=== PATIENT | male | born 1970 | race Caucasian/White ===

== ENCOUNTER 2022-06-28 00:45 | Inpatient (IN) | payer OTHER, MEDICAID, SELFPAY ==
[2022-06-28] VITALS (53 sets, daily range): BP systolic 144–169; BP diastolic 70–90; PULSE 79–115; RESP 12–27; TEMP 37.3–38; O2SAT 93–100; BMI 25.0
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
[2022-06-28] MEDS: MORPHINE 4 MG/ML INJ IM (01:59)
[2022-06-28 02:11] LABS: Add Manual Diff / Slide Review NO; Basophils Absolute Auto 100 /uL (0-100); Basophils Percent Auto 0.4 % (0-2); Eosinophils Absolute Auto 0 /uL (0-450); Hematocrit 41.1 % (41-53); Hemoglobin 13.8 g/dL (13.5-17.5); Lymphocytes Absolute Auto 1400 /uL (1100-4500); Lymphocytes Percent Auto 5.1 % (25-40); Mean Corpuscular HGB Conc 33.5 % (30-36); Mean Corpuscular Hemoglobin 29.5 PG (26-34); Mean Corpuscular Volume 88.1 fL (80-100); Monocytes Absolute Auto 2000 /uL (0-900); Monocytes Percent Auto 7.1 % (3-14); Neutrophils Absolute Auto 24100 /uL (1500-7000); Neutrophils Percent Auto 87.4 % (50-75); Platelet Count 281 X10^3/uL (150-400); Red Blood Cell Count 4.67 X10^6/uL (4.5-5.9); Red Cell Distribution Width 13.6 % (11.6-14.8); White Blood Cell Count 27.5 X10^3/uL (4.5-11.0)
[2022-06-28 02:21] LABS: Lactate (Lactic Acid) 2.1 mmol/L (0.7-2.1)
[2022-06-28] MEDS: SODIUM CHLORIDE 0.9% 1,000 ML 125 ML IV ×2 (02:40→21:27)
[2022-06-28] MEDS: cefTRIAXone 1,000 MG in SODIUM CHLORIDE 0.9% 100 ML 200 MG IV (02:40)
[2022-06-28 02:53] LABS: BUN Creatinine Ratio 24.6 (6-22); Blood Urea Nitrogen 15 mg/dL (9-20); Carbon Dioxide 31 mmol/L (22-32); Chloride 97 mmol/L (98-107); Estimated Glomerular Filt Rate > 60 mL/min (>60); Glucose 158 mg/dL (70-100); HEMOLYSIS < 15 (0-50); Lipase 26 U/L (23-300); Potassium 4.3 mmol/L (3.4-5.1); Sodium 136 mmol/L (137-145)
[2022-06-28] MEDS: HYDROMORPHONE 1 MG INJ IV ×2 (02:59→23:38)
[2022-06-28 03:10] LABS: Procalcitonin 0.34 ng/mL (<0.5)
[2022-06-28] MEDS: VANCOMYCIN 1,000 MG/200 ML PIGGYBACK 200 MG IV (03:18)
--- NOTE | 2022-06-28 03:39 | DI.RAD.S_ITS ---
PROCEDURE: XR HAND LT MIN 3V INDICATIONS: Fall reinjury Lt hand w/leukocytosis TECHNIQUE: 3 views of the hand(s) acquired. COMPARISON: None. FINDINGS: Bones: No fractures or dislocations. Carpal bones are normally aligned. No suspicious bony lesions. Soft tissues: No suspicious soft tissue calcifications. IMPRESSION: No acute osseous abnormality. Agree with preliminary interpretation. Dictated by: Toni Gamez M.D. on 06/28/2022 at 7:35 Approved by: Toni Gamez M.D. on 06/28/2022 at 7:37
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
[2022-06-28 04:04] LABS: Reflexed Lactate in 2 Hours Y
[2022-06-28] MEDS: ONDANSETRON 4 MG/2 ML INJ IV (04:05)
[2022-06-28] MEDS: MORPHINE 4 MG/ML INJ IV (04:06)
[2022-06-28] MEDS: SODIUM CHLORIDE 0.9% 1,000 ML 100 ML IV (05:04)
--- NOTE | 2022-06-28 05:24 | PC.NURSE ---
Pt's R upper arm IV has infiltrated with normal saline. Fluids have been stopped and IV removed. Affected arm has been wrapped in compression bandages and elevated. Pt denies pain to the area.
--- NOTE | 2022-06-28 05:40 | PC.NURSE ---
Pt has no peripheral access for IV starts of lab draws. founder aware and action has been taken facilitate DI nurse to come and obtain IV access.
[2022-06-28 06:20] LABS: Appearance Urine UA CLEAR; Bilirubin Urine UA 1+ (NEGATIVE); Glucose Urine UA NEGATIVE (Negative); Ketones Urine UA TRACE (NEGATIVE); Leukocyte Esterase Urine UA NEGATIVE (NEGATIVE); Nitrite Urine UA NEGATIVE (Negative); Occult Blood Urine UA NEGATIVE (Negative); Protein Urine UA TRACE (Negative); Specific Gravity Urine UA 1.015 (1.000-1.035)
[2022-06-28 06:24] LABS: Ur Creatinine Normal (Normal); Ur Specific Gravity Normal (Normal); Urine pH Normal (Normal)
[2022-06-28 06:25] LABS: UR Morphine/Opiate cutoff 300 Positive (Negative); Urine Amphetamines Positive (Negative); Urine Barbiturates Negative (Negative); Urine Benzodiazepines Negative (Negative); Urine Cocaine Negative (Negative); Urine MDMA Negative (Negative); Urine Methadone Positive (Negative); Urine Methamphetamines Positive (Negative); Urine Oxycodone Positive (Negative); Urine Phencyclidine Negative (Negative); Urine Tetrahydrocannabinol Negative (Negative); Urine Tricyclic Antidepressant Negative (Negative)
[2022-06-28 06:26] LABS: Color Urine UA Dark Yellow
[2022-06-28 06:28] LABS: Ictotest Urine Positive (Negative); RBC Urine 1-5/HPF (0-5/HPF); WBC Urine 1-5/HPF (0-5/HPF)
[2022-06-28 06:29] LABS: Bacteria Urine Occasional (0-1); Squamous Epithelial Cell Urine 0-1 /HPF (0-5/HPF)
[2022-06-28 06:30] LABS: Culture Indicated Urine Cult Not Indicated
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
[2022-06-28] MEDS: METHADONE 5 MG TABLET PO (06:50)
--- NOTE | 2022-06-28 09:44 | DI.MRI.S_ITS ---
PROCEDURE: MR FOREARM LT WO CON INDICATIONS: abscess, infection TECHNIQUE: Noncontrast coronal and sagittal T1 spin echo and STIR; axial T1 spin echo and T2 fast spin echo with fat saturation through the left forearm. COMPARISON: None. FINDINGS: Image quality: Diagnostic. Patient was in too much pain to tolerate further imaging. Coronal T1, coronal STIR, sagittal STIR and sagittal T1 sequences through the forearm were obtained. Bones: There is no marrow edema. No fracture or dislocation. No cortical erosion or periosteal reaction. Soft tissues: The scanned muscles demonstrate normal overall bulk and internal signal. There is diffuse subcutaneous soft tissue edema predominantly along radial and dorsal aspect of mid to distal forearm. No gross drainable fluid collection is identified. IMPRESSION: 1. Slightly limited study due to poor patient tolerance. Only 4 sequences were obtained. 2. No marrow edema. No forearm fracture or dislocation. No evidence of osteomyelitis. 3. Suggestion of cellulitis involving mid to distal forearm. No gross drainable abscess collection. No underlying forearm muscle signal abnormalities. Dictated by: Jeff Mcfadden M.D. on 06/28/2022 at 15:36 Approved by: Jeff Mcfadden M.D. on 06/28/2022 at 15:41
[2022-06-28] MEDS: ENOXAPARIN 40 MG/0.4 ML SYRINGE SUBCUT (10:02)
[2022-06-28] MEDS: HYDROMORPHONE 2 MG INJ IV ×5 (10:03→21:27)
--- NOTE | 2022-06-28 10:15 | PC.NURSE ---
Midline placed RUE approx 0930 by STEVE RN. Pt given Dilaudid 2mg post midline placement for 9/10 pain. Pt reports 4/10 pain at this time. Will continue to monitor.
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
[2022-06-28 11:13] LABS: Add Manual Diff / Slide Review NO; Basophils Absolute Auto 100 /uL (0-100); Basophils Percent Auto 0.4 % (0-2); Eosinophils Absolute Auto 0 /uL (0-450); Hematocrit 34.5 % (41-53); Hemoglobin 11.7 g/dL (13.5-17.5); Lymphocytes Absolute Auto 1400 /uL (1100-4500); Lymphocytes Percent Auto 6.1 % (25-40); Mean Corpuscular Hemoglobin 29.8 PG (26-34); Mean Corpuscular Volume 87.5 fL (80-100); Monocytes Absolute Auto 1900 /uL (0-900); Neutrophils Absolute Auto 20100 /uL (1500-7000); Neutrophils Percent Auto 85.5 % (50-75); Platelet Count 275 X10^3/uL (150-400); Red Blood Cell Count 3.94 X10^6/uL (4.5-5.9); Red Cell Distribution Width 13.8 % (11.6-14.8); White Blood Cell Count 23.6 X10^3/uL (4.5-11.0)
[2022-06-28 11:26] LABS: Hemoglobin A1C% w Est Avg Glu 5.8 % (4.0-6.0)
--- NOTE | 2022-06-28 11:55 | PC.NURSE ---
Unable to pull blood from midline, spoke with STEVE RN, states vessel is very small and is likely collapsing with pressure. Line flushes but does not draw. STEVE RN will stop by to see pt late morning to reassess. Lab advised RN that they are unable to draw pt due to pt being a difficult stick.
[2022-06-28] MEDS: VANCOMYCIN 1,250 MG/250 ML PIGGYBACK 250 MG IV ×2 (12:06→19:20)
--- NOTE | 2022-06-28 12:52 | DI.RAD.S_ITS ---
PROCEDURE: XR CHEST FOR PICC 1V INDICATIONS: PICC placement COMPARISON: None. FINDINGS: PICC was placed by the intravenous therapy team from the right side. Fluoroscopic spot film demonstrates the tip of PICC projecting to the area of cavoatrial junction. IMPRESSION: Tip of PICC projects to the area of cavoatrial junction. Dictated by: Rosey Mckenna M.D. on 06/28/2022 at 14:03 Approved by: Rosey Mckenna M.D. on 06/28/2022 at 14:03
[2022-06-28 13:29] LABS: Lactate 2HR (Lactic Acid Rflx) 1.3 mmol/L (0.7-2.1)
[2022-06-28 13:33] LABS: BUN Creatinine Ratio 21.8 (6-22); Blood Urea Nitrogen 12 mg/dL (9-20); Calcium 8.2 mg/dL (8.4-10.2); Carbon Dioxide 30 mmol/L (22-32); Chloride 95 mmol/L (98-107); Estimated Glomerular Filt Rate > 60 mL/min (>60); Glucose 149 mg/dL (70-100); HEMOLYSIS < 15 (0-50); Magnesium 1.7 mg/dL (1.6-2.3); Potassium 4.1 mmol/L (3.4-5.1); Sodium 132 mmol/L (137-145)
--- NOTE | 2022-06-28 13:37 | PC.NURSE ---
PICC placed by STEVE MCKEON at approx 1245. Blood send to lab.
[2022-06-28 13:39] LABS: NT-proBNP (BNP-Adult 18+) 1200 pg/mL (<125)
[2022-06-28 13:52] LABS: C-Reactive Protein Quant 18.4 mg/dL (<1.0)
--- NOTE | 2022-06-28 14:17 | OT.IPNOTE ---
OT eval orders received, awaiting MRI results and check with doctor for appropriateness of OT eval, therefore hold OT eval.
[2022-06-28 14:20] LABS: INR 1.2 (0.9-1.3)
--- NOTE | 2022-06-28 14:46 | DI.CT.S_ITS ---
PROCEDURE: CT UE LT W CON INDICATIONS: r/o abscess. please eval hand to elbow TECHNIQUE: After the administration of intravenous contrast, 3 mm axial sections acquired of the left forearm, with coronal and sagittal reformats. COMPARISON: None. FINDINGS: Image quality: Excellent. Bones: There is normal forearm alignment. No fracture or dislocation. No suspicious intraosseous lesion. No cortical erosion or periosteal reaction. Soft tissues: Soft tissue edema and subcutaneous fat stranding involving dorsal and radial aspect of forearm is seen extending to left wrist. No discrete drainable fluid collection is seen. No subcutaneous emphysema or gross ulceration. Underlying forearm muscles show no abnormal density or area of abnormal enhancement. IMPRESSION: 1. Suggestion of [id number] cellulitis throughout left forearm. No discrete drainable abscess collection. No underlying muscle involvement. 2. No forearm fracture or dislocation. No CT evidence of osteomyelitis. No suspicious bony lesions. Dictated by: Jeff Mcfadden M.D. on 06/28/2022 at 15:42 Approved by: Jeff Mcfadden M.D. on 06/28/2022 at 15:44
[2022-06-28 15:10] LABS: MRSA (Nasal) PCR Not Detected (Not Detect)
--- NOTE | 2022-06-28 15:10 | PC.NURSE ---
Per day shift chart review, IV fluids were stopped approx 0500 due to lack of IV access. The cage shift manager US-guided IV infiltrated around 0500, per cage shift manager RN, and required day shift DI nurse two separate attempts between [id number] for midline and PICC access. Fluids restarted once PICC was in place. See DI RN notes.
[2022-06-28] MEDS: SENNOSIDES 8.6 MG TABLET 17.2 MG PO (21:27)
[2022-06-29] VITALS (35 sets, daily range): BP systolic 119–185; BP diastolic 63–80; PULSE 63–91; RESP 14–30; TEMP 36.3–39.2; O2SAT 89–98; BMI 25.6
[2022-06-29] MEDS: cefTRIAXone 1,000 MG in SODIUM CHLORIDE 0.9% 100 ML 200 MG IV (00:59)
[2022-06-29 01:37] LABS: Acinetobacter baumannii Not Detected (Not Detect); Candida albicans Not Detected (Not Detect); Candida glabrata Not Detected (Not Detect); Candida krusei Not Detected (Not Detect); Candida parapsilosis Not Detected (Not Detect); Candida tropicalis Not Detected (Not Detect); E. coli Not Detected (Not Detect); Enterobacter cloacae complex Not Detected (Not Detect); Enterobacteriaceae species Not Detected (Not Detect); Enterococcus species Not Detected (Not Detect); Haemophilus influenzae Not Detected (Not Detect); Listeria monocytogenes Not Detected (Not Detect); Neisseria meningitidis Not Detected (Not Detect); Proteus species Not Detected (Not Detect); Pseudomonas aeruginosa Not Detected (Not Detect); Serratia marcescens Not Detected (Not Detect); Staphylococcus species Not Detected (Not Detect); Streptococcus agalactiae (Gr B Not Detected (Not Detect); Streptococcus pneumonia Not Detected (Not Detect); Streptococcus pyogenes (Gr A) Detected (Not Detect); Streptococcus species Detected (Not Detect)
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
[2022-06-29] MEDS: HYDROMORPHONE 2 MG INJ IV ×3 (02:02→23:29)
[2022-06-29] MEDS: CLINDAMYCIN 900 MG/50 ML PIGGYBACK 50 MG IV ×3 (02:27→17:56)
[2022-06-29 03:04] LABS: Vancomycin Trough 8.3 ug/mL (10-20)
[2022-06-29] MEDS: ACETAMINOPHEN 325 MG TABLET 975 MG PO ×2 (03:09→12:33)
[2022-06-29] MEDS: MEROPENEM 1 GM in SODIUM CHLORIDE 0.9% 100 ML IV ×3 (03:22→17:56)
[2022-06-29 03:30] LABS: Add Manual Diff / Slide Review NO; Basophils Absolute Auto 0 /uL (0-100); Basophils Percent Auto 0.2 % (0-2); Eosinophils Absolute Auto 0 /uL (0-450); Hematocrit 32.5 % (41-53); Lymphocytes Absolute Auto 1500 /uL (1100-4500); Lymphocytes Percent Auto 8.4 % (25-40); Mean Corpuscular HGB Conc 33.8 % (30-36); Mean Corpuscular Hemoglobin 29.7 PG (26-34); Mean Corpuscular Volume 87.9 fL (80-100); Monocytes Absolute Auto 1400 /uL (0-900); Neutrophils Absolute Auto 14400 /uL (1500-7000); Neutrophils Percent Auto 83.4 % (50-75); Platelet Count 286 X10^3/uL (150-400); Red Cell Distribution Width 13.5 % (11.6-14.8); White Blood Cell Count 17.3 X10^3/uL (4.5-11.0)
[2022-06-29] MEDS: VANCOMYCIN 1,250 MG/250 ML PIGGYBACK 250 MG IV ×3 (04:06→18:45)
[2022-06-29] MEDS: SODIUM CHLORIDE 0.9% 1,000 ML 125 ML IV ×3 (06:16→23:15)
[2022-06-29] MEDS: HYDROMORPHONE 1 MG INJ IV ×5 (06:52→16:37)
--- NOTE | 2022-06-29 07:29 | DI.ECHO.S_ITS ---
[facility] +---------+ [facility] +---------+ : : [address] : : : : [id number] : : : : Phone: [phone]+ Echocardiogram Report + + :Name: ALTAF DERAS Study Date: 06/29/2022 Height: 65 in : :[facility] ReadingLocation: Weight: 160 lb : : Gender: Male BSA: 1.8 m2 : :: 1970 Age: 52 yrs BP: 124/68 mmHg: :Reason For Study: GROUP A STREP BACTEREMIA : :Ordering Physician: CAREY, : :YOLANDA GARNER Performed By: Zoe Agustin : :Referring: YOLANDA PATINO : + + Interpretation Summary The left ventricle is normal in size and wall thickness. The ejection fraction is estimated to be 55-60%. The right ventricle is normal in size and function. There is mild tricuspid regurgitation. The right ventricular systolic pressure is estimated to be at least 41 mmHg based on an estimated right atrial pressure of 3 mm Hg. No obvious valvular vegetation seen. If clinical suspicion for endocarditis is high, consider ETHEL. Procedure: A two-dimensional transthoracic echocardiogram with color flow and Doppler was performed. The study quality was technically good. There is no prior echocardiogram noted for this patient. The patient was in sinus rhythm with heart rates between 76-89 bpm during the exam. Left Ventricle: The left ventricle is normal in size and wall thickness. There is no thrombus. The ejection fraction is estimated to be 55-60%. Septal motion is consistent with conduction abnormality. Diastolic parameters suggest probable normal left ventricular diastolic function and normal filling pressures. Right Ventricle: The right ventricle is normal in size and function. Atria: The left atrial size is normal. Right atrial size is normal. A prominent eustachian valve is noted. There is no Doppler evidence for an interatrial shunt. Mitral Valve: The mitral valve is normal in structure and function. There is systolic anterior motion of the chordal apparatus. There is trace mitral regurgitation. Aortic Valve: The aortic valve is trileaflet. The aortic valve opens well. There is no aortic valve stenosis. No aortic regurgitation is present. Tricuspid Valve: The tricuspid valve is normal. There is mild tricuspid regurgitation. The right ventricular systolic pressure is estimated to be at least 41 mmHg based on an estimated right atrial pressure of 3 mm Hg. Pulmonic Valve: The pulmonic valve leaflets are thin and pliable; valve motion is normal. There is trace pulmonic regurgitation. Great Vessels: The aortic root is normal size. The dimensions of the ascending aorta are normal. The IVC is of normal diameter and collapses greater than 50% with a sniff. This suggests a low right atrial pressure of 3 mm Hg. Pericardium/ Pleura There is no pericardial effusion. There is no pleural effusion. MMode/2D Measurements & Calculations LVIDd: 4.9 cm LVOT diam: 2.1 cm LVIDs: 2.9 cm Ao root diam: 3.0 cm FS: 40.3 % asc Aorta Diam: 3.1 cm IVSd: 0.72 cm Ao Arch Diam (Prox Trans): 2.9 cm LVPWd: 0.66 cm LV morales. diameter/BSA (cm/m^2): 2.7 LV sys. diameter/BSA (cm/m^2): 1.6 LA A2 area: 17.1 cm2 RA long axis: 4.2 cm LA A4 area: 16.6 cm2 RA area: 11.9 cm2 LA length (vol): 4.5 cm RA vol: 28.6 ml LA vol: 53.4 ml RA : 15.9 ml/m2 LA vol index: 29.7 ml/m2 IVC diam: 1.8 cm RVD1 (basal): 3.6 cm RVD2 (mid): 3.1 cm TAPSE: 2.0 cm Doppler Measurements & Calculations Ao V2 max: 110.5 cm/sec LVOT Max Ray: 95.3 cm/sec Ao V2 mean: 79.5 cm/sec LV V1 max P.6 mmHg Ao max P.9 mmHg LV V1 VTI: 19.1 cm Ao mean P.7 mmHg MIKE(I,D): 2.8 cm2 Ao V2 VTI: 23.3 cm MIKE(V,D): 2.9 cm2 sev ratio: 0.82 MIKE indexed to BSA (cm^2/m^2): 1.5 MV E max ray: 76.6 cm/sec TR max ray: 309.0 cm/sec MV A max ray: 56.9 cm/sec TR max P.2 mmHg MV E/A: 1.3 PA V2 max: 93.0 cm/sec Med Peak E' Ray: 9.6 cm/sec PA V2 mean: 67.0 cm/sec E/E' med: 7.9 PA mean P.9 mmHg Lat Peak E' Ray: 12.1 cm/sec PA pr(Accel): 48.2 mmHg E/E' lat: 6.4 E/e' average: 7.1 MV dec time: 0.22 sec SV(OT): 64.3 ml Reading Physician:04:26 PM
[2022-06-29] MEDS: ENOXAPARIN 40 MG/0.4 ML SYRINGE SUBCUT (09:18)
--- NOTE | 2022-06-29 10:29 | OT.IPNOTE ---
Per hospitalist not appropriate for therapy evals at this time and okay to discharge OT eval orders.
--- NOTE | 2022-06-29 15:20 | PC.NURSE ---
Pt arrived on stretcher from ED at 1410, A&Ox4, VSS on RA, c/o 8/10 pain to L hand. Unable to make fist or move fingers, swelling/redness present, c/o numbness to hand, CMS otherwise intact. Pt oriented to room and call light, bed alarm on.
[2022-06-29 15:21] LABS: COVID19 -Nasal RAPID POSITIVE (Negative)
--- NOTE | 2022-06-29 16:55 | PT-IP ANOTE ---
Per hospitalist not appropriate for therapy evals at this time and okay to discharge PT eval orders.
[2022-06-29] MEDS: SENNOSIDES 8.6 MG TABLET 17.2 MG PO (21:01)
[2022-06-30] VITALS (7 sets, daily range): BP systolic 144–164; BP diastolic 74–89; PULSE 74–94; RESP 17–20; TEMP 36.6–37.7; O2SAT 90–97
[2022-06-30] MEDS: VANCOMYCIN 1,250 MG/250 ML PIGGYBACK 250 MG IV ×4 (00:18→19:00)
[2022-06-30] MEDS: CLINDAMYCIN 900 MG/50 ML PIGGYBACK 50 MG IV ×3 (01:43→18:26)
[2022-06-30] MEDS: HYDROMORPHONE 2 MG INJ IV ×8 (02:02→21:33)
[2022-06-30] MEDS: MEROPENEM 1 GM in SODIUM CHLORIDE 0.9% 100 ML IV ×3 (02:05→18:26)
[2022-06-30] MEDS: SODIUM CHLORIDE 0.9% 1,000 ML 125 ML IV ×2 (07:02→16:27)
--- NOTE | 2022-06-30 07:08 | DI.US.S_ITS ---
PROCEDURE: US EXTREMITY NONVASC UPPER LT INDICATIONS: LEFT HAND AND WRIST CELLULITIS TECHNIQUE: Real-time scanning was performed of the left hand, with image documentation. COMPARISON: None. FINDINGS: Focused ultrasound examination over dorsal aspect of left hand shows marked soft tissue edema and swelling. No discrete soft tissue mass or drainable fluid collection. IMPRESSION: Dorsal soft tissue swelling and edema in left hand suggestive of extensive cellulitis. No drainable abscess collection or soft tissue mass. Dictated by: Jeff Mcfadden M.D. on 06/30/2022 at 8:37 Approved by: Jeff Mcfadden M.D. on 06/30/2022 at 8:48
[2022-06-30 07:34] LABS: Hemoglobin 10.4 g/dL (13.5-17.5); Mean Corpuscular HGB Conc 33.7 % (30-36); Mean Corpuscular Hemoglobin 29.7 PG (26-34); Mean Corpuscular Volume 88.2 fL (80-100); Platelet Count 309 X10^3/uL (150-400); Red Blood Cell Count 3.51 X10^6/uL (4.5-5.9); Red Cell Distribution Width 13.4 % (11.6-14.8); White Blood Cell Count 14.6 X10^3/uL (4.5-11.0)
[2022-06-30 07:37] LABS: Add Manual Diff / Slide Review YES
[2022-06-30 07:38] LABS: BUN Creatinine Ratio 16.7 (6-22); Blood Urea Nitrogen 9 mg/dL (9-20); Calcium 7.2 mg/dL (8.4-10.2); Carbon Dioxide 30 mmol/L (22-32); Chloride 99 mmol/L (98-107); Estimated Glomerular Filt Rate > 60 mL/min (>60); Glucose 102 mg/dL (70-100); HEMOLYSIS < 15 (0-50); Potassium 3.3 mmol/L (3.4-5.1); Sodium 134 mmol/L (137-145)
[2022-06-30] MEDS: ENOXAPARIN 40 MG/0.4 ML SYRINGE SUBCUT (08:08)
[2022-06-30 09:44] LABS: Neutrophils Absolute Manual 11096 /uL (3000-5900); Total Cells Counted 100
[2022-06-30 09:50] LABS: RBC Morphology Normal Morphology
[2022-06-30] MEDS: POTASSIUM CHLORIDE 20 MEQ TAB 40 MEQ PO (12:28)
--- NOTE | 2022-06-30 15:18 | CM.DANOTE ---
DCP Assessment: patient is 52 yr old male who was admitted for cellulites of the hand. Has Hx of drug abuse. CM met with patient at the bedside briefly- patient was A&O however very sleepy and not really participating with CM assessment. Patient states he is Independent with his ADLs and Drives at his baseline. Patient state he lives with GF in [place]. CM attempted to discuss drug detox or treatment options however patient was not interested in any resources at this time. PCP Unknown patient was starting to fall asleep and didn't answer PCP question. Insurance: [place]an and medicaid Plan: DC home with Significant other to provide transport when medically stable- open to HH services with [facility] if it is determined to be needed. not sure if patient will need IV abx or Oral and may have surgery I&D just pending surgical review. Gissell Zamarripa RNmailroom manager Discharge Planning/Care Management CM Discharge Assessment Start: 06/30/22 15:11 Freq: Status: Active Protocol: Document 06/30/22 15:11 HS (Rec: 06/30/22 15:18 HS [id number]) Discharge Planning Assessment Assigned Digital Imager Gissell Zamarripa RNpharmacy salesperson DPOA/Assigned Designee Name Jade Mendez- life partner Contact Information [phone] Advance Directives? No History Provided By Patient,Medical Record Prior Living Arrangements House Household Members significant other Type of transporation used prior to Drives own vehicle admit Independent with ADL's Yes Patient/Family Preference Home with Home Health Comment Patient open to HH if needed at DC but would preferr not having HH services Barriers to Discharge No Discharge Plan Home Transportation Arrangement Patient stated girl friend will provide transportation home Referrals Initiated None needed Additional Comment Patient open to HH if determined to need it. CM team will follow to set up HH if determined to be needed closer to DC If patient plan is home with home health No : Has signed face to face form been completed? If patient plan is SNF: Has PASSR been No completed? Medicare Choice List Provided Yes Medicare choice list reviewed on patient electronic tablet with SNF/HH Preference [facility] Has Agency SNF been contacted No Whiteboard Updated in Patient Room with Yes name and ext. # of Digital Imager Review Status In Process Next Review Type Continued Stay Review
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
[2022-06-30] MEDS: SENNOSIDES 8.6 MG TABLET 17.2 MG PO (21:33)
[2022-07-01] MEDS: HYDROMORPHONE 2 MG INJ IV ×10 (00:22→22:33)
[2022-07-01] MEDS: VANCOMYCIN 1,250 MG/250 ML PIGGYBACK 250 MG IV ×3 (00:22→13:49)
[2022-07-01] MEDS: SODIUM CHLORIDE 0.9% 1,000 ML 125 ML IV (00:23)
[2022-07-01 01:03] VITALS: BP 146/82; PULSE 69; RESP 16; TEMP 36.7; O2SAT 97
[2022-07-01] MEDS: CLINDAMYCIN 900 MG/50 ML PIGGYBACK 50 MG IV ×3 (02:13→17:32)
[2022-07-01] MEDS: MEROPENEM 1 GM in SODIUM CHLORIDE 0.9% 100 ML IV ×3 (02:19→17:32)
[2022-07-01 04:26] VITALS: BP 140/80; PULSE 68; RESP 18; TEMP 37.1; O2SAT 97
[2022-07-01 06:55] LABS: Hematocrit 32.7 % (41-53); Hemoglobin 11.1 g/dL (13.5-17.5); Mean Corpuscular Hemoglobin 29.5 PG (26-34); Mean Corpuscular Volume 86.6 fL (80-100); Platelet Count 366 X10^3/uL (150-400); Red Blood Cell Count 3.77 X10^6/uL (4.5-5.9); Red Cell Distribution Width 13.6 % (11.6-14.8); White Blood Cell Count 15.1 X10^3/uL (4.5-11.0)
[2022-07-01 06:58] LABS: Add Manual Diff / Slide Review YES
[2022-07-01 07:12] LABS: Neutrophils Absolute Manual 10419 /uL (3000-5900); Total Cells Counted 100
[2022-07-01 07:13] LABS: RBC Morphology Normal Morphology
[2022-07-01 07:24] LABS: BUN Creatinine Ratio 18.4 (6-22); Blood Urea Nitrogen 9 mg/dL (9-20); Calcium 7.4 mg/dL (8.4-10.2); Carbon Dioxide 30 mmol/L (22-32); Chloride 101 mmol/L (98-107); Estimated Glomerular Filt Rate > 60 mL/min (>60); Glucose 102 mg/dL (70-100); HEMOLYSIS 16 (0-50); Potassium 3.4 mmol/L (3.4-5.1); Sodium 136 mmol/L (137-145)
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
[2022-07-01 07:37] LABS: Vancomycin Trough 16.5 ug/mL (10-20)
[2022-07-01 08:00] VITALS: BP 149/82; PULSE 70; RESP 16; TEMP 36.7; O2SAT 93
[2022-07-01] MEDS: VANCOMYCIN TROUGH 1 REQUEST MISC (08:08)
[2022-07-01] MEDS: POTASSIUM CHLORIDE 20 MEQ/15 ML UDC PO (08:10)
[2022-07-01] MEDS: ENOXAPARIN 40 MG/0.4 ML SYRINGE SUBCUT (10:03)
--- NOTE | 2022-07-01 11:28 | PC.NURSE ---
Wakes to voice and name. appropriate follows commands. Expresses needs easily. IV's patent.
[2022-07-01 12:00] VITALS: BP 149/85; PULSE 70; RESP 18; TEMP 35.9; O2SAT 99
[2022-07-01 16:00] VITALS: BP 140/80; PULSE 72; RESP 16; TEMP 36.6; O2SAT 93
[2022-07-01] MEDS: cefTRIAXone 2,000 MG in SODIUM CHLORIDE 0.9% 100 ML 200 MG IV (19:49)
[2022-07-01] MEDS: SENNOSIDES 8.6 MG TABLET 17.2 MG PO (19:50)
[2022-07-01 22:46] VITALS: BP 138/81; PULSE 71; RESP 19; TEMP 36.6; O2SAT 94
[2022-07-02] VITALS (7 sets, daily range): BP systolic 121–144; BP diastolic 63–84; PULSE 62–86; RESP 16–18; TEMP 36.3–37.3; O2SAT 91–100
[2022-07-02] MEDS: CLINDAMYCIN 900 MG/50 ML PIGGYBACK 50 MG IV ×3 (01:25→18:06)
[2022-07-02] MEDS: HYDROMORPHONE 2 MG INJ IV ×4 (01:26→07:42)
[2022-07-02 06:05] LABS: Hematocrit 32.9 % (41-53); Hemoglobin 11.3 g/dL (13.5-17.5); Mean Corpuscular HGB Conc 34.2 % (30-36); Mean Corpuscular Hemoglobin 29.7 PG (26-34); Mean Corpuscular Volume 86.6 fL (80-100); Platelet Count 418 X10^3/uL (150-400); Red Cell Distribution Width 13.4 % (11.6-14.8); White Blood Cell Count 16.1 X10^3/uL (4.5-11.0)
[2022-07-02 06:06] LABS: Add Manual Diff / Slide Review YES
[2022-07-02 06:09] LABS: BUN Creatinine Ratio 21.4 (6-22); Blood Urea Nitrogen 12 mg/dL (9-20); Calcium 7.1 mg/dL (8.4-10.2); Carbon Dioxide 33 mmol/L (22-32); Chloride 97 mmol/L (98-107); Estimated Glomerular Filt Rate > 60 mL/min (>60); Glucose 131 mg/dL (70-100); HEMOLYSIS < 15 (0-50); Potassium 3.1 mmol/L (3.4-5.1); Sodium 136 mmol/L (137-145)
[2022-07-02 07:08] LABS: Neutrophils Absolute Manual 11431 /uL (3000-5900); Total Cells Counted 100
[2022-07-02 07:09] LABS: RBC Morphology Normal Morphology
[2022-07-02] MEDS: OXYCODONE IR 5 MG TABLET PO ×4 (09:13→18:05)
[2022-07-02] MEDS: POTASSIUM CHLORIDE 20 MEQ TAB 40 MEQ PO (09:14)
[2022-07-02] MEDS: ENOXAPARIN 40 MG/0.4 ML SYRINGE SUBCUT (09:14)
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
[2022-07-02] MEDS: HYDROMORPHONE 1 MG INJ IV ×3 (16:19→22:38)
[2022-07-02] MEDS: cefTRIAXone 2,000 MG in SODIUM CHLORIDE 0.9% 100 ML 200 MG IV (18:06)
[2022-07-02] MEDS: SENNOSIDES 8.6 MG TABLET 17.2 MG PO (20:07)
[2022-07-03] VITALS (7 sets, daily range): BP systolic 114–186; BP diastolic 68–107; PULSE 64–90; RESP 14–19; TEMP 36.3–36.6; O2SAT 93–98
--- NOTE | 2022-07-03 00:38 | PC.NURSE ---
Pt walked to bathroom w/o staff, bed alarm was on. Staff placed hospital socks on pt and reinforced bed alarm, educating to call before getting up. Pt had BM, unable to visualize it.
[2022-07-03] MEDS: OXYCODONE IR 5 MG TABLET PO ×5 (01:01→20:39)
[2022-07-03] MEDS: CLINDAMYCIN 900 MG/50 ML PIGGYBACK 50 MG IV ×3 (01:01→17:50)
[2022-07-03] MEDS: HYDROMORPHONE 1 MG INJ IV ×4 (02:20→23:44)
[2022-07-03 06:01] LABS: Hematocrit 34.1 % (41-53); Hemoglobin 11.7 g/dL (13.5-17.5); Mean Corpuscular HGB Conc 34.3 % (30-36); Mean Corpuscular Hemoglobin 29.7 PG (26-34); Mean Corpuscular Volume 86.6 fL (80-100); Platelet Count 492 X10^3/uL (150-400); Red Blood Cell Count 3.94 X10^6/uL (4.5-5.9); Red Cell Distribution Width 13.6 % (11.6-14.8); White Blood Cell Count 17.6 X10^3/uL (4.5-11.0)
[2022-07-03 06:02] LABS: Add Manual Diff / Slide Review YES
[2022-07-03 06:08] LABS: Blood Urea Nitrogen 14 mg/dL (9-20); Calcium 7.9 mg/dL (8.4-10.2); Carbon Dioxide 33 mmol/L (22-32); Chloride 95 mmol/L (98-107); Estimated Glomerular Filt Rate > 60 mL/min (>60); Glucose 122 mg/dL (70-100); HEMOLYSIS < 15 (0-50); Potassium 3.6 mmol/L (3.4-5.1); Sodium 135 mmol/L (137-145)
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
[2022-07-03 07:47] LABS: Neutrophils Absolute Manual 13024 /uL (3000-5900); Total Cells Counted 100
[2022-07-03 07:48] LABS: RBC Morphology Normal Morphology
[2022-07-03] MEDS: ACETAMINOPHEN 325 MG TABLET 975 MG PO ×2 (08:25→23:45)
[2022-07-03] MEDS: ENOXAPARIN 40 MG/0.4 ML SYRINGE SUBCUT (08:25)
[2022-07-03] MEDS: HYDROMORPHONE 2 MG INJ IV ×3 (09:53→15:13)
--- NOTE | 2022-07-03 15:50 | CM.DPC ---
DCP Cont: Per MD, per Ortho currently no need for I&D yet and pt making very slow progress with IV-Abx and per ID MD consult recommendation is IV-Abx for as long as possible but then can d/c on oral abx. MD anticipates another 2 days of IV-Abx and then d/c. Per RN, pt has been ambulating independently, having bm, tolerating diet. Plan: SW to follow tomorrow with pt to confirm safe plan of home via [employer] Other POV and that he still declines [facility] resources. Desire Myers, TAP AND DIE MAKER TECHNICIAN
[2022-07-03] MEDS: cefTRIAXone 2,000 MG in SODIUM CHLORIDE 0.9% 100 ML 200 MG IV (17:06)
[2022-07-03] MEDS: SENNOSIDES 8.6 MG TABLET 17.2 MG PO (20:48)
[2022-07-04] VITALS: BP 135/76; PULSE 64; RESP 22; TEMP 37; O2SAT 96
[2022-07-04] MEDS: OXYCODONE IR 5 MG TABLET PO ×4 (01:00→14:07)
[2022-07-04] MEDS: HYDROMORPHONE 1 MG INJ IV ×5 (03:23→14:59)
[2022-07-04 04:00] VITALS: BP 128/68; PULSE 59; RESP 17; TEMP 36.7; O2SAT 96
[2022-07-04] MEDS: ACETAMINOPHEN 325 MG TABLET 975 MG PO ×2 (05:30→14:07)
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
[2022-07-04 08:00] VITALS: BP 130/81; PULSE 59; RESP 17; TEMP 36.2; O2SAT 98
[2022-07-04] MEDS: ENOXAPARIN 40 MG/0.4 ML SYRINGE SUBCUT (08:09)
[2022-07-04 08:27] LABS: Hematocrit 36.2 % (41-53); Hemoglobin 12.4 g/dL (13.5-17.5); Mean Corpuscular HGB Conc 34.3 % (30-36); Mean Corpuscular Hemoglobin 29.7 PG (26-34); Mean Corpuscular Volume 86.6 fL (80-100); Platelet Count 580 X10^3/uL (150-400); Red Blood Cell Count 4.18 X10^6/uL (4.5-5.9); Red Cell Distribution Width 13.7 % (11.6-14.8); White Blood Cell Count 15.6 X10^3/uL (4.5-11.0)
[2022-07-04 08:31] LABS: Add Manual Diff / Slide Review YES
[2022-07-04 08:41] LABS: Neutrophils Absolute Manual 10764 /uL (3000-5900); RBC Morphology Normal Morphology; Total Cells Counted 100
[2022-07-04 08:42] LABS: Blood Urea Nitrogen 14 mg/dL (9-20); Calcium 8.4 mg/dL (8.4-10.2); Carbon Dioxide 31 mmol/L (22-32); Chloride 97 mmol/L (98-107); Estimated Glomerular Filt Rate > 60 mL/min (>60); Glucose 120 mg/dL (70-100); HEMOLYSIS < 15 (0-50); Potassium 4.4 mmol/L (3.4-5.1); Sodium 138 mmol/L (137-145)
[2022-07-04 11:00] VITALS: BP 128/78; PULSE 70; RESP 17; TEMP 36.9; O2SAT 98
[2022-07-04 15:00] VITALS: BP 123/72; PULSE 88; RESP 17; TEMP 36.7; O2SAT 97
[2022-07-04] MEDS: HYDROMORPHONE 2 MG INJ IV ×2 (17:07→19:03)
--- NOTE | 2022-07-04 17:21 | PC.NURSE ---
Pain: hard to control pain effectively on 1mg of dilaudid, pt opted to go up to 2mg. Pain better controlled.
[2022-07-04] MEDS: cefTRIAXone 2,000 MG in SODIUM CHLORIDE 0.9% 100 ML 200 MG IV (18:53)
[2022-07-04 20:00] VITALS: BP 109/61; PULSE 91; RESP 19; TEMP 36.4; O2SAT 94
--- NOTE | 2022-07-04 20:54 | PC.NURSE ---
1999: pt stated he need to leave the hospital now, as his 'ride is here now and wont be tomorrow'. Rn educated pt that he still has antibx to be given tomorrow. Patient verbalized understanding of AMA. Hospitalist Dr. Kaye was called, came and spoke with patient. 2039: PICC line removed, AMA form signed by patient, pt gathered belongings and left hospital with 2 friends.
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
== END 2022-07-04 20:40 | disposition left against medical advice (07) | DRG 383 ==
LOC: ED 03:12 → AC 03:14
PROVIDERS: Family Medicine; Internal Medicine; Student in an Organized Health Care Education/Training Program; Admitting Provider Nurse Practitioner Family; Emergency Provider Emergency Medicine; Referring Provider Emergency Medicine; Visit Provider Nurse Practitioner Family
DX: L03.114 Cellulitis of left upper limb (principal); E87.1 Hypo-osmolality and hyponatremia; U07.1 COVID-19; F11.10 Opioid abuse, uncomplicated; F15.10 Other stimulant abuse, uncomplicated; B95.0 Streptococcus, group A, as the cause of diseases classified elsewhere; E87.6 Hypokalemia; F17.200 Nicotine dependence, unspecified, uncomplicated; Z53.29 Procedure and treatment not carried out because of patient's decision for other reasons
CPT/HCPCS: 36415; 36569; 36592; 73110; 73130; 73201; 73218; 76882; 80048; 80202; 80305; 81001; 83036; 83605; 83690; 83735; 83880; 84145; 85007; 85025; 85610; 86140; 87040; 87070; 87075; 87077; 87147; 87150; 87186; 87205; 87635; 87797; 93306; 93971; 96365; 96366; 96367; 96372; 96375; 96376; 99284; C9803; J0696; J1170; J1650; J2185; J2270; J2405; Q9967